=== PATIENT | female | born 1995 | race Hispanic/Latino ===

== ENCOUNTER 2018-09-21 11:16 | Emergency (ER) | payer OTHER ==
[2018-09-21 11:38] VITALS: BP 125/76; PULSE 75; RESP 18; TEMP 98.7; O2SAT 99
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
--- NOTE | 2018-09-21 12:11 | RAD ---
Date of service: 09/21/2018 PROCEDURE: Cervical Spine Radiographs. HISTORY: Pain. COMPARISON: None available. TECHNIQUE: 3 views obtained. FINDINGS: BONES: Alignment maintained. No fracture. Dens Intact. DISC SPACES: Normal. SOFT TISSUES: Normal. No prevertebral soft tissue swelling. OTHER FINDINGS: None. IMPRESSION: Normal cervical spine radiographs
== END 2018-09-21 12:44 | disposition home or self-care (01) ==
LOC: EDSEX 11:16 → C.ER 11:16
DX: S13.4XXA Sprain of ligaments of cervical spine, initial encounter (principal); V49.49XA Driver injured in collision with other motor vehicles in traffic accident, initial encounter; Y92.410 Unspecified street and highway as the place of occurrence of the external cause